=== PATIENT | female | born 1990 | race Caucasian/White ===

== ENCOUNTER 2020-06-01 11:23 | Emergency (ER) | payer SELFPAY ==
[~2020-06-01] VITALS: Ht 162.6 cm; Wt 84.4 kg
--- NOTE | 2020-06-01 11:41 | NUR ---
DR MUNOZ AT BEDSIDE FOR EVAL.
[2020-06-01] MEDS ORDERED: KETOROLAC TROMETHAMINE 15 MG/ML VIAL ONE (11:58)
[2020-06-01] MEDS ORDERED: SUMATRIPTAN SUCCINATE 6 MG/0.5 ML VIAL SQ ONE ×2 (11:59→12:00)
[2020-06-01] MEDS ORDERED: METOCLOPRAMIDE HCL 10 MG/2 ML VIAL ONE (11:59)
[2020-06-01] MEDS ORDERED: METOCLOPRAMIDE HCL 10 MG/2 ML VIAL IV ONE (12:00)
[2020-06-01] MEDS ORDERED: KETOROLAC TROMETHAMINE INJ 30 MG/ML VIAL IV ONE (12:00)
[2020-06-01] MEDS ORDERED: IV NS 0.9% 1,000 ML BAG IV ONE (12:00)
--- NOTE | 2020-06-01 12:06 | NUR ---
PT STATES NO POSSIBILITY OF BEING . WILL SIGN WAIVER. PT TO RADIOLOGY FOR HEAD CT SCAN VIA CANDELARIA.
[2020-06-01] MEDS ORDERED: METO-295 PO (13:12)
[2020-06-01] MEDS ORDERED: SUMA50TA PO (13:12)
[2020-06-01 14:13] VITALS: BP 133/74
--- NOTE | 2020-06-01 14:13 | NUR ---
Patient discharged to home in stable condition. Written and verbal after care instructions given. Patient verbalizes understanding of instruction.IV removed. Catheter intact and site benign. Pressure and 4x4 applied to site. No bleeding noted.
== END 2020-06-01 14:13 | disposition home or self-care (01) ==
LOC: ER 11:29
DX: R51.9 Headache, unspecified (principal); R11.2 Nausea with vomiting, unspecified; Z60.2 Problems related to living alone; Z79.899 Other long term (current) drug therapy
CPT/HCPCS: 70450; 96361; 96372; 96374; 96375; 99285; J1885; J2765; J3030; J7030